=== PATIENT | male | born 1970 | race Caucasian/White ===

== ENCOUNTER → 2020-04-14 | Outpatient (CLI) | payer OTHER ==
[2020-04-14 11:55] LABS: RED BLOOD COUNT 4.41 M/UL (4.20-5.50); WHITE BLOOD COUNT 4.7 K/UL (4.5-11.0)
[2020-04-14 12:17] LABS: BUN/CREATININE RATIO 19 (0-10)
== END ==
LOC: OPSV 11:00
PROVIDERS: Internal Medicine Gastroenterology
DX: K50.90 Crohn's disease, unspecified, without complications (principal)
CPT/HCPCS: 36415; 80053; 85025; 86140; 96365; J3380; J7050

== ENCOUNTER → 2020-05-12 | Outpatient (CLI) | payer OTHER ==
[~2020-05-12] VITALS: Ht 177.8 cm; Wt 90.3 kg
[2020-05-12 13:39] LABS: HEMOGLOBIN 13.2 gm/dl (14.0-17.5); RED BLOOD COUNT 4.53 M/UL (4.20-5.50); WHITE BLOOD COUNT 4.5 K/UL (4.5-11.0)
[2020-05-12 14:02] LABS: BUN/CREATININE RATIO 18 (0-10)
== END ==
LOC: OPSV 13:00
PROVIDERS: Internal Medicine Gastroenterology
DX: K50.90 Crohn's disease, unspecified, without complications (principal)
CPT/HCPCS: 36415; 80053; 85025; 86140; 96365; J3380; J7050

== ENCOUNTER → 2020-06-09 | Outpatient (CLI) | payer OTHER ==
[~2020-06-09] VITALS: Ht 177.8 cm; Wt 90.3 kg
[2020-06-09 12:49] LABS: HEMOGLOBIN 13.9 gm/dl (14.0-17.5); RED BLOOD COUNT 4.78 M/UL (4.20-5.50); WHITE BLOOD COUNT 4.5 K/UL (4.5-11.0)
[2020-06-09 13:23] LABS: BUN/CREATININE RATIO 16 (0-10)
== END ==
LOC: OPSV 12:00
PROVIDERS: Internal Medicine Gastroenterology
DX: K50.90 Crohn's disease, unspecified, without complications (principal)
CPT/HCPCS: 36415; 80053; 85025; 86140; 96365; J3380; J7050

== ENCOUNTER → 2020-07-05 | Outpatient (CLI) | payer OTHER ==
[~2020-07-05] VITALS: Ht 177.8 cm; Wt 90.3 kg
[2020-07-05 13:00] LABS: HEMOGLOBIN 13.7 gm/dl (14.0-17.5); RED BLOOD COUNT 4.7 M/UL (4.20-5.50); WHITE BLOOD COUNT 8.2 K/UL (4.5-11.0)
[2020-07-05 13:20] LABS: BUN/CREATININE RATIO 23 (0-10)
== END ==
LOC: OPSV 11:00
PROVIDERS: Internal Medicine Gastroenterology
DX: K50.90 Crohn's disease, unspecified, without complications (principal)
CPT/HCPCS: 36415; 80053; 85025; 86140; 96365; J3380; J7030

== ENCOUNTER → 2020-08-04 | Outpatient (CLI) | payer OTHER ==
[~2020-08-04] VITALS: Ht 177.8 cm; Wt 88.0 kg
[2020-08-04 12:20] LABS: HEMOGLOBIN 13.1 gm/dl (14.0-17.5); RED BLOOD COUNT 4.44 M/UL (4.20-5.50); WHITE BLOOD COUNT 4.6 K/UL (4.5-11.0)
[2020-08-04 13:16] LABS: BUN/CREATININE RATIO 15 (0-10)
== END ==
LOC: OPSV 11:46
PROVIDERS: Internal Medicine Gastroenterology
DX: K50.90 Crohn's disease, unspecified, without complications (principal); Z11.1 Encounter for screening for respiratory tuberculosis
CPT/HCPCS: 36415; 80053; 85025; 86140; 96365; J3380; J7050

== ENCOUNTER → 2020-08-31 | Outpatient (CLI) | payer OTHER ==
[~2020-08-31] VITALS: Ht 177.8 cm; Wt 90.3 kg
[2020-08-31 13:43] LABS: HEMOGLOBIN 13.9 gm/dl (14.0-17.5); RED BLOOD COUNT 4.6 M/UL (4.20-5.50); WHITE BLOOD COUNT 4.5 K/UL (4.5-11.0)
[2020-08-31 14:10] LABS: BUN/CREATININE RATIO 17 (0-10)
== END ==
LOC: OPSV 12:00
PROVIDERS: Internal Medicine Gastroenterology
DX: K50.90 Crohn's disease, unspecified, without complications (principal); J32.9 Chronic sinusitis, unspecified; G47.10 Hypersomnia, unspecified; F11.20 Opioid dependence, uncomplicated; E21.1 Secondary hyperparathyroidism, not elsewhere classified; D86.9 Sarcoidosis, unspecified; G47.00 Insomnia, unspecified
CPT/HCPCS: 36415; 80053; 85025; 86140; 96365; J3380; J7050

== ENCOUNTER → 2020-09-27 | Outpatient (CLI) | payer OTHER ==
[~2020-09-27] VITALS: Ht 177.8 cm; Wt 90.3 kg
[2020-09-27 12:54] LABS: HEMOGLOBIN 13.4 gm/dl (14.0-17.5); RED BLOOD COUNT 4.46 M/UL (4.20-5.50); WHITE BLOOD COUNT 4.7 K/UL (4.5-11.0)
[2020-09-27 13:22] LABS: BUN/CREATININE RATIO 17 (0-10)
== END ==
LOC: OPSV 12:00
PROVIDERS: Internal Medicine Gastroenterology
DX: K50.90 Crohn's disease, unspecified, without complications (principal); L30.9 Dermatitis, unspecified; M19.90 Unspecified osteoarthritis, unspecified site; A04.72 Enterocolitis due to Clostridium difficile, not specified as recurrent; I25.9 Chronic ischemic heart disease, unspecified; J32.9 Chronic sinusitis, unspecified; J34.2 Deviated nasal septum; R06.00 Dyspnea, unspecified; G47.19 Other hypersomnia; L02.92 Furuncle, unspecified; E21.3 Hyperparathyroidism, unspecified; G47.00 Insomnia, unspecified; J34.3 Hypertrophy of nasal turbinates; R11.0 Nausea; N20.0 Calculus of kidney; F11.20 Opioid dependence, uncomplicated; R00.2 Palpitations; R94.2 Abnormal results of pulmonary function studies; R21 Rash and other nonspecific skin eruption; D86.9 Sarcoidosis, unspecified; E21.1 Secondary hyperparathyroidism, not elsewhere classified; R06.02 Shortness of breath; J34.89 Other specified disorders of nose and nasal sinuses; R11.10 Vomiting, unspecified; R63.4 Abnormal weight loss
CPT/HCPCS: 36415; 80053; 85025; 86140; 96365; J3380; J7050

== ENCOUNTER → 2020-10-25 | Outpatient (CLI) | payer OTHER ==
[~2020-10-25] VITALS: Ht 177.8 cm; Wt 90.3 kg
[2020-10-25 13:58] LABS: HEMOGLOBIN 14.4 gm/dl (14.0-17.5); RED BLOOD COUNT 4.72 M/UL (4.20-5.50); WHITE BLOOD COUNT 8.8 K/UL (4.5-11.0)
[2020-10-25 14:30] LABS: BUN/CREATININE RATIO 23 (0-10)
== END ==
LOC: OPSV 11:48
PROVIDERS: Internal Medicine Gastroenterology
DX: K50.90 Crohn's disease, unspecified, without complications (principal)
CPT/HCPCS: 36415; 80053; 85025; 86140; 96365; J3380; J7030

== ENCOUNTER → 2020-11-22 | Outpatient (CLI) | payer OTHER ==
[~2020-11-22] VITALS: Ht 177.8 cm; Wt 90.3 kg
[2020-11-22 13:21] LABS: HEMOGLOBIN 14.4 gm/dl (14.0-17.5); RED BLOOD COUNT 4.64 M/UL (4.20-5.50); WHITE BLOOD COUNT 6.8 K/UL (4.5-11.0)
[2020-11-22 14:10] LABS: BUN/CREATININE RATIO 22 (0-10)
== END ==
LOC: OPSV 12:00
PROVIDERS: Internal Medicine Gastroenterology
DX: K50.90 Crohn's disease, unspecified, without complications (principal)
CPT/HCPCS: 80053; 85025; 86140; 96365; J3380; J7050

== ENCOUNTER → 2020-12-20 | Outpatient (CLI) | payer OTHER ==
[~2020-12-20] VITALS: Ht 177.8 cm; Wt 90.3 kg
[2020-12-20 12:36] LABS: HEMOGLOBIN 12.8 gm/dl (14.0-17.5); RED BLOOD COUNT 4.33 M/UL (4.20-5.50); WHITE BLOOD COUNT 5.7 K/UL (4.5-11.0)
[2020-12-20 13:14] LABS: BUN/CREATININE RATIO 12 (0-10)
== END ==
LOC: OPSV 12:00
PROVIDERS: Internal Medicine Gastroenterology
DX: K50.90 Crohn's disease, unspecified, without complications (principal)
CPT/HCPCS: 36415; 80053; 85025; 86140; 96365; J3380; J7050

== ENCOUNTER → 2021-01-17 | Outpatient (CLI) | payer OTHER ==
[~2021-01-17] VITALS: Ht 177.8 cm; Wt 90.3 kg
[2021-01-17 12:51] LABS: HEMOGLOBIN 14.9 gm/dl (14.0-17.5); RED BLOOD COUNT 4.77 M/UL (4.20-5.50); WHITE BLOOD COUNT 5.9 K/UL (4.5-11.0)
[2021-01-17 13:46] LABS: BUN/CREATININE RATIO 11 (0-10)
== END ==
LOC: OPSV 12:00
PROVIDERS: Internal Medicine Gastroenterology
DX: K50.90 Crohn's disease, unspecified, without complications (principal)
CPT/HCPCS: 36415; 80053; 85025; 86140; 96365; J3380; J7050

== ENCOUNTER → 2021-02-14 | Outpatient (CLI) | payer OTHER ==
[~2021-02-14] VITALS: Ht 177.8 cm; Wt 90.3 kg
[2021-02-14 13:10] LABS: HEMOGLOBIN 14.3 gm/dl (14.0-17.5); RED BLOOD COUNT 4.63 M/UL (4.20-5.50); WHITE BLOOD COUNT 6.2 K/UL (4.5-11.0)
[2021-02-14 13:45] LABS: BUN/CREATININE RATIO 11 (0-10)
== END ==
LOC: OPSV 12:00
PROVIDERS: Internal Medicine Gastroenterology
DX: K50.90 Crohn's disease, unspecified, without complications (principal); M19.90 Unspecified osteoarthritis, unspecified site; G47.19 Other hypersomnia; E21.3 Hyperparathyroidism, unspecified; G47.00 Insomnia, unspecified; N20.0 Calculus of kidney; D86.9 Sarcoidosis, unspecified; J30.9 Allergic rhinitis, unspecified; J34.2 Deviated nasal septum
CPT/HCPCS: 36415; 80053; 85025; 86140; 96365; J3380; J7030

== ENCOUNTER → 2021-03-23 | Outpatient (CLI) | payer OTHER ==
[~2021-03-23] VITALS: Ht 177.8 cm; Wt 90.3 kg
[2021-03-23 12:52] LABS: HEMOGLOBIN 14.2 gm/dl (14.0-17.5); RED BLOOD COUNT 4.71 M/UL (4.20-5.50); WHITE BLOOD COUNT 5.1 K/UL (4.5-11.0)
[2021-03-23 13:07] LABS: BUN/CREATININE RATIO 13 (0-10)
== END ==
LOC: OPSV 03-14 12:00
PROVIDERS: Internal Medicine Gastroenterology
DX: K50.10 Crohn's disease of large intestine without complications (principal)
CPT/HCPCS: 36415; 80053; 85025; 86140; 96365; J3380; J7050

== ENCOUNTER → 2021-04-25 | Outpatient (CLI) | payer OTHER ==
[~2021-04-25] VITALS: Ht 177.8 cm; Wt 90.3 kg
[2021-04-25 12:47] LABS: HEMOGLOBIN 14.3 gm/dl (14.0-17.5); RED BLOOD COUNT 4.88 M/UL (4.20-5.50); WHITE BLOOD COUNT 5.5 K/UL (4.5-11.0)
== END ==
LOC: OPSV 12:00
PROVIDERS: Internal Medicine Gastroenterology
DX: K50.10 Crohn's disease of large intestine without complications (principal)
CPT/HCPCS: 36415; 80053; 85025; 86140; 96365; J3380; J7050

== ENCOUNTER → 2021-05-23 | Outpatient (CLI) | payer OTHER ==
[~2021-05-23] VITALS: Ht 177.8 cm; Wt 90.3 kg
[2021-05-23 14:28] LABS: HEMOGLOBIN 13.7 gm/dl (14.0-17.5); RED BLOOD COUNT 4.86 M/UL (4.20-5.50); WHITE BLOOD COUNT 9.2 K/UL (4.5-11.0)
== END ==
LOC: OPSV 12:00
PROVIDERS: Internal Medicine Gastroenterology
DX: K50.10 Crohn's disease of large intestine without complications (principal)
CPT/HCPCS: 80053; 85025; 86140; 96365; J3380; J7050

== ENCOUNTER → 2021-06-20 | Outpatient (CLI) | payer OTHER ==
[~2021-06-20] VITALS: Ht 177.8 cm; Wt 90.3 kg
[2021-06-20 12:35] LABS: RED BLOOD COUNT 4.81 M/UL (4.20-5.50); WHITE BLOOD COUNT 6.9 K/UL (4.5-11.0)
== END ==
LOC: OPSV 12:00
PROVIDERS: Internal Medicine Gastroenterology
DX: K50.10 Crohn's disease of large intestine without complications (principal)
CPT/HCPCS: 80053; 85025; 86140; 96365; J3380; J7050

== ENCOUNTER → 2021-07-18 | Outpatient (CLI) | payer OTHER ==
[~2021-07-18] VITALS: Ht 177.8 cm; Wt 90.3 kg
[2021-07-18 12:20] LABS: HEMOGLOBIN 12.4 gm/dl (14.0-17.5); RED BLOOD COUNT 4.17 M/UL (4.20-5.50); WHITE BLOOD COUNT 5.3 K/UL (4.5-11.0)
[2021-07-18 12:49] LABS: BUN/CREATININE RATIO 14 (0-10)
== END ==
LOC: OPSV 11:54
PROVIDERS: Internal Medicine Gastroenterology
DX: K50.10 Crohn's disease of large intestine without complications (principal)
CPT/HCPCS: 80053; 85025; 86140; 96365; J3380; J7050

== ENCOUNTER → 2021-08-15 | Outpatient (CLI) | payer OTHER ==
[~2021-08-15] VITALS: Ht 177.8 cm; Wt 90.3 kg
[2021-08-15 12:41] LABS: HEMOGLOBIN 14.1 gm/dl (14.0-17.5); RED BLOOD COUNT 4.67 M/UL (4.20-5.50); WHITE BLOOD COUNT 6.7 K/UL (4.5-11.0)
[2021-08-15 13:01] LABS: BUN/CREATININE RATIO 20 (0-10)
== END ==
LOC: OPSV 12:00
PROVIDERS: Internal Medicine Gastroenterology
DX: K50.10 Crohn's disease of large intestine without complications (principal)
CPT/HCPCS: 80053; 85025; 86140; 96365; J3380; J7050

== ENCOUNTER → 2021-09-28 | Outpatient (CLI) | payer OTHER ==
[~2021-09-28] VITALS: Ht 177.8 cm; Wt 90.3 kg
[2021-09-28 15:04] LABS: HEMOGLOBIN 12.6 gm/dl (14.0-17.5); RED BLOOD COUNT 4.12 M/UL (4.20-5.50); WHITE BLOOD COUNT 7.3 K/UL (4.5-11.0)
[2021-09-28 15:31] LABS: BUN/CREATININE RATIO 14 (0-10)
== END ==
LOC: OPSV 09-12 12:00
PROVIDERS: Internal Medicine Gastroenterology
DX: K50.10 Crohn's disease of large intestine without complications (principal)
CPT/HCPCS: 80053; 85025; 86140; 96365; J3380; J7050

== ENCOUNTER → 2021-10-29 | Outpatient (CLI) | payer OTHER ==
[2021-10-29 12:37] LABS: HEMOGLOBIN 12.4 gm/dl (14.0-17.5); RED BLOOD COUNT 4.21 M/UL (4.20-5.50); WHITE BLOOD COUNT 4.6 K/UL (4.5-11.0)
[2021-10-29 12:40] LABS: BUN/CREATININE RATIO 15 (0-10)
== END ==
LOC: OPSV 10-26 12:00
PROVIDERS: Internal Medicine Gastroenterology
DX: K50.10 Crohn's disease of large intestine without complications (principal)
CPT/HCPCS: 80053; 85025; 86140; 96365; J3380; J7050

== ENCOUNTER → 2021-11-26 | Outpatient (CLI) | payer OTHER ==
[2021-11-26 12:23] LABS: RED BLOOD COUNT 4.72 M/UL (4.20-5.50); WHITE BLOOD COUNT 6.2 K/UL (4.5-11.0)
[2021-11-26 12:41] LABS: BUN/CREATININE RATIO 17 (0-10)
== END ==
LOC: OPSV 11:50
PROVIDERS: Internal Medicine Gastroenterology
DX: K50.10 Crohn's disease of large intestine without complications (principal)
CPT/HCPCS: 80053; 85025; 86140; 96365; J3380; J7050

== ENCOUNTER → 2021-12-24 | Outpatient (CLI) | payer OTHER ==
[~2021-12-24] VITALS: Ht 177.8 cm; Wt 90.3 kg
[2021-12-24 12:56] LABS: HEMOGLOBIN 12.6 gm/dl (14.0-17.5); RED BLOOD COUNT 4.23 M/UL (4.20-5.50); WHITE BLOOD COUNT 5.6 K/UL (4.5-11.0)
[2021-12-24 13:19] LABS: BUN/CREATININE RATIO 15 (0-10)
== END ==
LOC: OPSV 12:00
PROVIDERS: Internal Medicine Gastroenterology
DX: K50.10 Crohn's disease of large intestine without complications (principal)
CPT/HCPCS: 80053; 85025; 86140; 96365; J3380; J7050